=== PATIENT | female | born 1960 | race Caucasian/White ===

== ENCOUNTER 2025-02-07 13:22 | Emergency (ER) | payer MEDICAID, OTHER ==
[2025-02-07 14:01] VITALS: BP 123/79; PULSE 90
== END 2025-02-07 15:00 | disposition home or self-care (01) ==
LOC: FB.ED 13:22
DX: S50.12XA Contusion of left forearm, initial encounter (principal); Z79.899 Other long term (current) drug therapy; Z91.040 Latex allergy status; Z88.5 Allergy status to narcotic agent; Z88.7 Allergy status to serum and vaccine; W01.0XXA Fall on same level from slipping, tripping and stumbling without subsequent striking against object, initial encounter
CPT/HCPCS: 73080-LT; 73110-LT; 99283